=== PATIENT | male | born 1950 | race Caucasian/White ===

== ENCOUNTER → 2016-09-13 | Outpatient (CLI) | payer MEDICARE, OTHER ==
[2016-09-13 09:43] LABS: INR 1.1 (<1.1); Prothrombin Time 11.2 sec (9.0-12.0)
== END | disposition home or self-care (01) ==
LOC: LABWHC1 08:41
PROVIDERS: ATTEND Orthopaedic Surgery Hand Surgery
DX: Z51.81 Encounter for therapeutic drug level monitoring (principal); Z79.01 Long term (current) use of anticoagulants
CPT/HCPCS: 36415; 85610

== ENCOUNTER 2017-10-07 18:45 | Observation (INO) | payer MEDICARE, OTHER ==
[2017-10-07] MEDS ORDERED: SODIUM CHLORIDE 0.9% 1,000 ML IV STA (19:53)
[2017-10-07] MEDS ORDERED: SODIUM CHLORIDE 0.9% 500 ML IV STA (19:53)
[2017-10-07] MEDS ORDERED: ASPIRIN 81 MG PO STA (19:54)
[2017-10-07] MEDS ORDERED: NITROGLYCERIN OINT 1 INCH/GM PACKET TOPICAL STA (19:54)
--- NOTE | 2017-10-07 19:57 | ED ---
Arrhythmia/Palpitations HPI - General Chief Complaint: Arrhythmia/Palpitations Stated Complaint: Low blood pressure/lightheaded/chest pain Time Seen by Provider: 10/07/17 19:43 Source: patient Mode of arrival: wheelchair Limitations: no limitations - History of Present Illness Initial Comments: This 67-year-old white male presents with a complaint of some palpitations. He states that it feels like he is going into atrial fibrillation. He apparently has had atrial fibrillation for quite some time and knows when he goes in and out of it. He states that it is happened multiple times today. It usually will resolve if he rests. He also complains of an episode of having some chest pain earlier. This was a squeezing sensation in his left chest. He also had been taking his blood pressure today and noted that it was quite low. Is often in the 90s for the systolic. It did drop down to 78/57 at one point. His home blood pressure cuff. He states that his heart rate would jump up to approximately 114. He denies any shortness of breath, cough, fever. He denies any leg pain or swelling. There is no syncope or presyncope. No other complaints or modifying factors. - Related Data Home Medications Medication Instructions Recorded Confirmed Metoprolol Tartrate [Lopressor] 25 mg PO HS 04/02/16 10/07/17 Warfarin Sodium [Coumadin] 5 mg PO SUTUTHSA 04/02/16 10/07/17 Warfarin [Coumadin] 7.5 mg PO MOWEFR 04/02/16 10/07/17 Losartan Potassium [Cozaar] 25 mg PO DAILY 10/07/17 10/07/17 Metoprolol Tartrate [Lopressor] 50 mg PO DAILY 10/07/17 10/07/17 Previous Rx's Medication Instructions Recorded Clopidogrel [Plavix] 75 mg PO DAILY #30 tab 10/14/14 Nitroglycerin Sl Tabs [Nitrostat] 0.4 mg SUBLINGUAL Q5M PRN #30 tab 10/14/14 Allergies Allergy/AdvReac Type Severity Reaction Status Date / Time No Known Allergies Allergy Verified 10/07/17 20:20 Review of Systems ROS Statement: Those systems with pertinent positive or pertinent negative responses have been documented in the HPI. ROS Other: All systems not noted in ROS Statement are negative. 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, diverticulitis History of Any Multi-Drug Resistant Organisms: None Reported Past Surgical History: Appendectomy, Heart Catheterization, Orthopedic Surgery Additional Past Surgical History / Comment(s): skill saw accident lt hand affected 4 fingers, sx sophy elbows for tennis elbow Past Anesthesia/Blood Transfusion Reactions: No Reported Reaction Past Psychological History: No Psychological Hx Reported Smoking Status: Current every day smoker Past Alcohol Use History: None Reported Past Drug Use History: None Reported - Past Family History Father Family Medical History: Hypertension Mother Family Medical History: Coronary Artery Disease (CAD), Seizure Disorder General Exam - General Exam Comments Initial Comments: GENERAL: The patient is well nourished and well hydrated. VITAL SIGNS: Heart rate, blood pressure, respiratory rate reviewed as recorded in nurse's notes. EYES: Pupils are round and reactive. Extraocular movements are intact. No conjunctival / lid redness or swelling. ENT: No external evidence of injury, swelling, or ecchymosis. Airway is patent. Throat is clear. NECK: Nontender. No swelling or evidence of injury. No subcutaneous emphysema. Trachea is midline. No thyroid mass. HEART: Regular rate and rhythm. Good peripheral pulses. LUNGS/CHEST: Breath sounds clear and equal bilaterally. No rales, rhonchi, or wheezes. No ecchymosis, subcutaneous emphysema, or tenderness. ABDOMEN: Abdomen soft without tenderness. No palpable masses or organomegaly. No peritoneal signs. No abdominal wall swelling or ecchymosis. EXTREMITIES: No extremity tenderness. Normal muscle tone and function. No thoracolumbar tenderness. NEUROLOGIC: Sensation is grossly intact. Cranial nerve exam reveals face is symmetrical, tongue is midline, speech is clear. SKIN: No abrasions or ecchymosis is noted. No induration or masses noted. PSYCHIATRIC: Alert and oriented. Appropriate behavior and judgment. Mild anxiety noted. Limitations: no limitations Course Vital Signs 10/07/17 10/07/17 10/07/17 19:14 19:41 21:17 Temperature 98.7 F Pulse Rate 111 H 86 Pulse Rate [ 106 H [employer] ] Pulse Rate [ 98 Pulse Oximetery ] Pulse Rate [ 96 Radial] Respiratory 19 100 H 18 Rate Blood Pressure 125/78 119/58 Blood Pressure 140/65 [Right Arm Sitting] Blood Pressure 141/66 [Right Arm Standing] Blood Pressure 145/68 [Right Arm Supine] O2 Sat by Pulse 96 98 Oximetry 10/07/17 22:17 Temperature Pulse Rate 86 Pulse Rate [ [employer] ] Pulse Rate [ Pulse Oximetery ] Pulse Rate [ Radial] Respiratory 18 Rate Blood Pressure 110/87 Blood Pressure [Right Arm Sitting] Blood Pressure [Right Arm Standing] Blood Pressure [Right Arm Supine] O2 Sat by Pulse 99 Oximetry Medical Decision Making - Medical Decision Making The patient was seen and examined. All diagnostics were reviewed. An IV is started and he is hydrated. He has an EKG done which shows a normal sinus rhythm at a rate of 94. There is some mild T-wave inversions in V1 and V2 but no acute ST elevation. The [place] intervals 172, QRS duration is 82, and the QTC intervals 440. He does receive aspirin as well as some Nitropaste. He states that he is feeling better on recheck. He denies any further palpitations or chest pain. He also had a chest x-ray which does not show any acute processes. His cardiac profile labs is unremarkable. The case is discussed with Selina from internal medicine and she is agreeable with admission. Is felt as though he would require admission to rule out the possibility of acute coronary syndrome. - Lab Data Result diagrams: 10/07/17 19:38 10/07/17 19:38 Lab Results 10/07/17 10/07/17 10/07/17 Range/Units 19:38 19:38 19:38 WBC 9.6 (3.8-10.6) k/uL RBC 4.97 (4.30-5.90) m/uL Hgb 15.0 (13.0-17.5) gm/dL Hct 43.8 (39.0-53.0) % MCV 88.2 (80.0-100.0) fL MCH 30.3 (25.0-35.0) pg MCHC 34.3 (31.0-37.0) g/dL RDW 12.6 (11.5-15.5) % Plt Count 282 (150-450) k/uL Neutrophils % 67 % Lymphocytes % 23 % Monocytes % 6 % Eosinophils % 1 % Basophils % 1 % Neutrophils # 6.5 (1.3-7.7) k/uL Lymphocytes # 2.2 (1.0-4.8) k/uL Monocytes # 0.6 (0-1.0) k/uL Eosinophils # 0.1 (0-0.7) k/uL Basophils # 0.0 (0-0.2) k/uL PT (9.0-12.0) sec INR (<1.2) APTT (22.0-30.0) sec D-Dimer (<0.60) mg/L FEU Sodium 141 (137-145) mmol/L Potassium 4.4 (3.5-5.1) mmol/L Chloride 103 (98-107) mmol/L Carbon Dioxide 27 (22-30) mmol/L Anion Gap 11 mmol/L BUN 18 (9-20) mg/dL Creatinine 1.00 (0.66-1.25) mg/dL Est GFR (CKD-EPI)AfAm >90 (>60 ml/min/1.73 sqM) Est GFR (CKD-EPI)NonAf 78 (>60 ml/min/1.73 sqM) Glucose 114 H (74-99) mg/dL Calcium 10.1 (8.4-10.2) mg/dL Magnesium 1.8 (1.6-2.3) mg/dL Total Bilirubin 0.5 (0.2-1.3) mg/dL AST 32 (17-59) U/L ALT 42 (21-72) U/L Alkaline Phosphatase 69 (38-126) U/L Total Creatine Kinase 212 H (55-170) U/L CK-MB (CK-2) 1.5 (0.0-2.4) ng/mL CK-MB (CK-2) Rel Index 0.7 Troponin I <0.012 (0.000-0.034) ng/mL Total Protein 7.0 (6.3-8.2) g/dL Albumin 3.9 (3.5-5.0) g/dL 10/07/17 Range/Units 19:38 WBC (3.8-10.6) k/uL RBC (4.30-5.90) m/uL Hgb (13.0-17.5) gm/dL Hct (39.0-53.0) % MCV (80.0-100.0) fL MCH (25.0-35.0) pg MCHC (31.0-37.0) g/dL RDW (11.5-15.5) % Plt Count (150-450) k/uL Neutrophils % % Lymphocytes % % Monocytes % % Eosinophils % % Basophils % % Neutrophils # (1.3-7.7) k/uL Lymphocytes # (1.0-4.8) k/uL Monocytes # (0-1.0) k/uL Eosinophils # (0-0.7) k/uL Basophils # (0-0.2) k/uL PT 20.0 H (9.0-12.0) sec INR 2.2 H (<1.2) APTT 35.0 H (22.0-30.0) sec D-Dimer 0.26 (<0.60) mg/L FEU Sodium (137-145) mmol/L Potassium (3.5-5.1) mmol/L Chloride (98-107) mmol/L Carbon Dioxide (22-30) mmol/L Anion Gap mmol/L BUN (9-20) mg/dL Creatinine (0.66-1.25) mg/dL Est GFR (CKD-EPI)AfAm (>60 ml/min/1.73 sqM) Est GFR (CKD-EPI)NonAf (>60 ml/min/1.73 sqM) Glucose (74-99) mg/dL Calcium (8.4-10.2) mg/dL Magnesium (1.6-2.3) mg/dL Total Bilirubin (0.2-1.3) mg/dL AST (17-59) U/L ALT (21-72) U/L Alkaline Phosphatase (38-126) U/L Total Creatine Kinase (55-170) U/L CK-MB (CK-2) (0.0-2.4) ng/mL CK-MB (CK-2) Rel Index Troponin I (0.000-0.034) ng/mL Total Protein (6.3-8.2) g/dL Albumin (3.5-5.0) g/dL Disposition Clinical Impression: Palpitations, Chest pain, History of atrial fibrillation Disposition: ADMITTED IP TO THIS HOSP Condition: Fair Referrals: Kate Alvarez DO [Primary Care Provider] - 1-2 days Time of Disposition: 23:03 Decision Date: 10/07/17 Decision Time: 23:03
[2017-10-07 20:03] LABS: Basophils % (A) 1 %; Eosinophils # (A) 0.1 k/uL (0-0.7); Eosinophils % (A) 1 %; HCT 43.8 % (39.0-53.0); Lymphocytes # (A) 2.2 k/uL (1.0-4.8); Lymphocytes % (A) 23 %; MCH 30.3 pg (25.0-35.0); MCHC 34.3 g/dL (31.0-37.0); MCV 88.2 fL (80.0-100.0); Mean Platelet Volume 7.9; Monocytes # (A) 0.6 k/uL (0-1.0); Monocytes % (A) 6 %; Neutrophils # (A) 6.5 k/uL (1.3-7.7); Neutrophils % (A) 67 %; Platelet Count 282 k/uL (150-450); RBC 4.97 m/uL (4.30-5.90); RDW 12.6 % (11.5-15.5); WBC 9.6 k/uL (3.8-10.6)
[2017-10-07 20:14] LABS: ALT 42 U/L (21-72); AST 32 U/L (17-59); Albumin 3.9 g/dL (3.5-5.0); Alkaline Phosphatase 69 U/L (38-126); Anion Gap 11 mmol/L; Blood Urea Nitrogen 18 mg/dL (9-20); Calcium 10.1 mg/dL (8.4-10.2); Carbon Dioxide 27 mmol/L (22-30); Chloride 103 mmol/L (98-107); Glucose 114 mg/dL (74-99); Magnesium 1.8 mg/dL (1.6-2.3); Potassium 4.4 mmol/L (3.5-5.1); Sodium 141 mmol/L (137-145); Total Bilirubin 0.5 mg/dL (0.2-1.3)
[2017-10-07 20:16] LABS: D-Dimer 0.26 mg/L FEU (<0.60); INR 2.2 (<1.2)
[2017-10-07 20:21] LABS: Creatine Kinase 212 U/L (55-170)
[2017-10-07 20:34] LABS: Creatine Kinase MB 1.5 ng/mL (0.0-2.4); Troponin I <0.012 ng/mL (0.000-0.034)
--- NOTE | 2017-10-07 21:16 | XR ---
EXAMINATION: XR chest 2V DATE AND TIME: 10/07/2017 8:27 PM ORDERING PROVIDER: Adrian Russell DO CLINICAL INDICATION: dysrhythmia TECHNIQUE: PA and lateral COMPARISON: 04/02/2016 DESCRIPTION: The lungs are clear. The pleural spaces are negative. The cardiac silhouette is not enlarged. The mediastinal and pleural silhouettes are unremarkable. The skeletal structures are intact without focal findings. The soft tissues are unremarkable. IMPRESSION: NO ACUTE PROCESS.
[2017-10-07] MEDS ORDERED: NITROGLYCERIN SL TABS 0.4 MG TAB SUBLINGUAL PRN (23:04)
[2017-10-07] MEDS ORDERED: WARFARIN 5 MG TAB PO SCH (23:15)
[2017-10-08 00:07] VITALS: BMI 24.4
[2017-10-08] MEDS: NITROGLYCERIN OINT 1 INCH/GM PACKET TOPICAL SCH ×3 (00:14→12:12)
[2017-10-08] MEDS ORDERED: TEMAZEPAM 15 MG CAP PO PRN (00:39)
[2017-10-08] MEDS ORDERED: ALPRAZolam 0.25 MG TAB PO PRN (00:39)
[2017-10-08 02:06] LABS: Creatine Kinase 148 U/L (55-170)
[2017-10-08 02:19] LABS: Troponin I <0.012 ng/mL (0.000-0.034)
--- NOTE | 2017-10-08 03:42 | HP ---
HISTORY AND PHYSICAL DATE OF SERVICE: 10/07/2017 CHIEF COMPLAINTS: Lightheadedness and chest pain. HISTORY OF PRESENT ILLNESS: This 67-year-old gentleman with a past medical history of multiple medical problems including history atrial fibrillation, flutter, history of CVA, TIA, hypertension, hyperlipidemia, history of appendectomy, being followed by Dr. Kate Alvarez in the outpatient setting was admitted with some chest discomfort today and chest pain was on the left side which is squeezing type of sensation, which is not radiating anywhere. The patient also noted tachycardic at this time. Patient had blood pressure found to be low at 78/50, and the patient came to [facility] and admitted for further evaluation and treatment. The heart rate also jumped to 114 according to him. There is no history of fever, rigors. No history of headache, loss of consciousness, seizures at this time. The rhythm in the EKG was found to be normal sinus rhythm with a heart rate of 94 with left axis deviation. There is no history of fever, rigors, no history of headache, loss of consciousness, seizures. PAST MEDICAL HISTORY: History of atrial fibrillation, history of CVA, TIA, hypertension, hyperlipidemia, kidney stones, history of appendectomy, cardiac catheterization. MEDICATIONS: Prior to admission 1. Coumadin 7.5 Friday, Friday and Friday and 5 mg and Friday, Friday, , Friday. 2. Lopressor 25 mg q.h.s. 3. Cozaar 25 mg p.o. 4. Lopressor 50 mg p.o. daily. 5. Nitrostat 0.4 sublingual p.r.n. 6. Plavix 75 mg p.o. daily. ALLERGIES: None. FAMILY HISTORY: History of hypertension. SOCIAL HISTORY: History of smoking on a daily basis. REVIEW OF SYSTEMS: ENT: No diminished hearing or diminished vision. CARDIOVASCULAR: No angina or palpitations. Respirations: No cough or hemoptysis. GI no nausea. : No dysuria. NERVOUS SYSTEM: No numbness or weakness. Allergy/Immunology: No asthma or hayfever. Musculoskeletal as mentioned earlier. Hematology/Oncology: No history of anemia. Endocrine: No history of diabetes or hypothyroidism. Constitutional: As mentioned earlier. Dermatology: Negative. Rheumatology: Negative. Psychiatric: As mentioned earlier. PHYSICAL EXAM: The patient is alert and oriented times three. Pulse 96, blood pressure 120/62, respiration 18, temperature 97.9, pulse ox 98% on room air. HEENT is conjunctivae normal. Oral mucosa moist. Neck is no jugular venous distention. No carotid bruit. No lymph node enlargement. Cardiovascular: S1, S2 muffled. No S3, no S4. Respiratory: Breath sounds diminished in the bases. No rhonchi. No crackles. ABDOMEN: Soft, nontender. No mass palpable. Legs: No edema and no swelling. NERVOUS SYSTEM: Higher functions as mentioned earlier, moves all 4 limbs, no focal deficits. Lymphatics: No lymph nodes palpable in the neck, axillae or groin. SKIN: No ulcer, rash, bleeding. Joints: No active deforming arthropathy. LABS: CBC within normal limits. INR is 2.2. D-dimer is 0.26, glucose 114. ASSESSMENT: 1. Left-sided chest pain, rule out coronary artery disease. 2. Tachycardia, rule out cardiac arrhythmia. 3. Paroxysmal atrial fibrillation, flutter. 4. Coumadin monitoring. 5. Cerebrovascular accident/ Transient ischemic attack history. 6. Hyperlipidemia. 7. Hypertension. 8. History of nephrolithiasis. 9. History of brain aneurysm and stroke in 2013. 10.History of degenerative joint disease. 11.History of nicotine dependence. RECOMMENDATIONS AND DISCUSSION: In this 67-year-old gentleman who presented with multiple complex medical issues, we will monitor the patient closely. Continue the current management and symptomatic treatment. Otherwise at this time unstable angina protocol and cardiology consultation, telemetry. Otherwise, guarded prognosis because of multiple complex medical issues. Resume the home medications and further recommendations to follow. Copy of dictation being forwarded to Dr. Kate Alvarez who is the primary care physician. MMODL / IJN: [id number] /
[2017-10-08 08:14] VITALS: RESP 18
[2017-10-08 08:24] LABS: Cholesterol 163 mg/dL (<200); HDL Cholesterol 33 mg/dL (40-60); LDL Cholesterol,Calculated 105 mg/dL (0-99); Triglycerides 123 mg/dL (<150)
[2017-10-08 08:33] LABS: Creatine Kinase 127 U/L (55-170)
[2017-10-08 08:46] LABS: Troponin I <0.012 ng/mL (0.000-0.034)
[2017-10-08] MEDS ORDERED: CLOPIDOGREL 75 MG TAB PO SCH (09:00)
[2017-10-08] MEDS ORDERED: ASPIRIN 325 MG TAB PO SCH (09:00)
[2017-10-08] MEDS ORDERED: METOPROLOL TARTRATE 50 MG TAB PO SCH (09:00)
[2017-10-08] MEDS ORDERED: LOSARTAN 25 MG TAB PO SCH (09:00)
--- NOTE | 2017-10-08 10:37 | P.CRDCN ---
History of Present Illness Consult date: 10/08/17 History of present illness: This is a 67-year-old gentleman with history of of paroxysmal atrial fibrillation, systemic hypertension, history of previous TIAs/CVA and previous coronary artery disease which is noncritical, came to the hospital with complaints of recurrent episodes of palpitations. Apparently he felt that his heart was irregular and he could tell that is in atrial fibrillation. His blood pressure was Apparently low and he felt slightly dizzy. Because of that patient came to the emergency room. He also complains of vague chest pain which is chronic and seems to be nonsignificant. Since admission here patient has been in sinus rhythm. His blood pressure has been stable. His cardiac enzymes are negative. I discussed the case to and he suggests that patient be discharged home on a monitor. He patient has documented atrial fibrillation, he will try to do cryoablation. 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 residual difficulty swallowing, diverticulitis History of Any Multi-Drug Resistant Organisms: None Reported Past Surgical History: Appendectomy, Heart Catheterization, Orthopedic Surgery Additional Past Surgical History / Comment(s): skill saw accident lt hand affected 4 fingers, sx sophy elbows for tennis elbow Past Anesthesia/Blood Transfusion Reactions: No Reported Reaction Past Psychological History: No Psychological Hx Reported Smoking Status: Current every day smoker Past Alcohol Use History: None Reported Additional Past Alcohol Use History / Comment(s): started smoking at age 26- smoked now smokes 1/4 ppd Past Drug Use History: None Reported - Past Family History Father Family Medical History: Hypertension Mother Family Medical History: Coronary Artery Disease (CAD), Seizure Disorder Medications and Allergies Home Medications Medication Instructions Recorded Confirmed Type Clopidogrel [Plavix] 75 mg PO DAILY #30 tab 10/14/14 10/07/17 Rx Nitroglycerin Sl Tabs [Nitrostat] 0.4 mg SUBLINGUAL Q5M PRN #30 tab 10/14/1401/19 Rx Metoprolol Tartrate [Lopressor] 25 mg PO HS 04/02/16 10/07/17 History Warfarin Sodium [Coumadin] 5 mg PO SUTUTHSA 04/02/16 10/07/17 History Warfarin [Coumadin] 7.5 mg PO MOWEFR 04/02/16 10/07/17 History Losartan Potassium [Cozaar] 25 mg PO DAILY 10/07/17 10/07/17 History Metoprolol Tartrate [Lopressor] 50 mg PO DAILY 10/07/17 10/07/17 History Allergies Allergy/AdvReac Type Severity Reaction Status Date / Time Xodjmvt-Dwi-Gat Reductase AdvReac Intermediate Unknown Verified 10/08/17 04:47 Inhibitor Physical Exam Vitals: Vital Signs Temp Pulse Pulse Pulse Pulse Resp BP 10/08/17 08:00 98.2 F 84 18 10/08/17 04:00 98.0 F 80 16 10/08/17 03:48 80 16 10/08/17 00:00 84 16 10/07/17 23:57 97.9 F 72 15 10/07/17 23:10 96 18 110/62 10/07/17 22:17 86 18 110/87 10/07/17 21:17 86 18 119/58 10/07/17 19:41 106 H 98 96 100 H 10/07/17 19:14 98.7 F 111 H 19 125/78 BP BP BP BP Pulse Ox 10/08/17 08:00 123/62 94 L 10/08/17 04:00 117/64 96 10/08/17 03:48 10/08/17 00:00 10/07/17 23:57 140/76 96 10/07/17 23:10 99 10/07/17 22:17 99 10/07/17 21:17 98 10/07/17 19:41 140/65 141/66 145/68 10/07/17 19:14 96 Intake and Output 10/07/17 10/08/17 10/08/17 22:59 06:59 14:59 Other: Voiding Method Toilet Toilet # Voids 2 Weight 83.915 kg 88 kg GENERAL EXAM: Patient is alert and oriented and doesn't appear to be in any acute distress HEENT: Normocephalic. Normal reaction of pupils, equal size, normal range of extraocular motion. No erythema or exudates in the throat. NECK: No masses, no nuchal rigidity. CHEST: No chest wall deformity. LUNGS: Equal air entry with no crackles or wheeze. HEART: S1 and S2 normal with no audible mumurs or gallops. Regular rhythm, femorals equal on both sides.. ABDOMEN: No hepatosplenomegaly, normal bowel sounds, no guarding or rigidity. SKIN: No rashes CENTRAL NERVOUS SYSTEM: No focal deficits. EXTREMITIES: No cyanosis, clubbing or edema. Results 10/07/17 19:38 10/07/17 19:38 Cardiac Enzymes 10/07/17 10/07/17 10/08/17 Range/Units 19:38 19:38 01:12 AST 32 (17-59) U/L CK-MB (CK-2) 1.5 1.0 (0.0-2.4) ng/mL Troponin I <0.012 <0.012 (0.000-0.034) ng/mL 10/08/17 Range/Units 07:06 AST (17-59) U/L CK-MB (CK-2) 1.0 (0.0-2.4) ng/mL Troponin I <0.012 (0.000-0.034) ng/mL Coagulation 10/07/17 Range/Units 19:38 PT 20.0 H (9.0-12.0) sec APTT 35.0 H (22.0-30.0) sec Lipids 10/08/17 Range/Units 07:06 Triglycerides 123 (<150) mg/dL Cholesterol 163 (<200) mg/dL HDL Cholesterol 33 L (40-60) mg/dL CBC 10/07/17 Range/Units 19:38 WBC 9.6 (3.8-10.6) k/uL RBC 4.97 (4.30-5.90) m/uL Hgb 15.0 (13.0-17.5) gm/dL Hct 43.8 (39.0-53.0) % Plt Count 282 (150-450) k/uL Comprehensive Metabolic Panel 10/07/17 Range/Units 19:38 Sodium 141 (137-145) mmol/L Potassium 4.4 (3.5-5.1) mmol/L Chloride 103 (98-107) mmol/L Carbon Dioxide 27 (22-30) mmol/L BUN 18 (9-20) mg/dL Creatinine 1.00 (0.66-1.25) mg/dL Glucose 114 H (74-99) mg/dL Calcium 10.1 (8.4-10.2) mg/dL AST 32 (17-59) U/L ALT 42 (21-72) U/L Alkaline Phosphatase 69 (38-126) U/L Total Protein 7.0 (6.3-8.2) g/dL Albumin 3.9 (3.5-5.0) g/dL Current Medications Generic Name Dose Route Start Last Admin Trade Name Freq PRN Reason Stop Dose Admin Alprazolam 0.25 mg 10/08/17 00:39 Xanax PO TID PRN Anxiety Aspirin 325 mg 10/08/17 09:00 Aspirin PO DAILY [facility] Clopidogrel Bisulfate 75 mg 10/08/17 09:00 Plavix PO DAILY [facility] Losartan Potassium 25 mg 10/08/17 09:00 Cozaar PO DAILY [facility] Metoprolol Tartrate 50 mg 10/08/17 09:00 Lopressor PO DAILY [facility] Metoprolol Tartrate 25 mg 10/08/17 21:00 Lopressor PO HS [facility] Nitroglycerin 1 inch 10/08/17 00:00 10/08/17 03:47 Nitro-Bid Oint TOPICAL Not Given Q6HR [facility] Nitroglycerin 0.4 mg 10/07/17 23:04 Nitrostat SUBLINGUAL Q5M PRN Chest Pain Temazepam 15 mg 10/08/17 00:39 Restoril PO HS PRN Insomnia Warfarin Sodium 5 mg 10/07/17 23:15 10/08/17 00:11 Coumadin PO 5 mg [email or web address] [facility] Administration Warfarin Sodium 7.5 mg 10/08/17 18:00 Coumadin PO [email or web address] [facility] Intake and Output 10/07/17 10/08/17 10/08/17 22:59 06:59 14:59 Other: Voiding Method Toilet Toilet # Voids 2 Weight 83.915 kg 88 kg 10/07/17 19:38 10/07/17 19:38 EKG Interpretations (text) Sinus rhythm Assessment and Plan (1) CAD (coronary artery disease) Current Visit: Yes Status: Acute Code(s): I25.10 - ATHSCL HEART DISEASE OF [place] CORONARY ARTERY W/O ANG PCTRS SNOMED Code(s): 52431274 (2) History of atrial fibrillation Current Visit: Yes Status: Acute Code(s): Z86.79 - PERSONAL HISTORY OF OTHER DISEASES OF THE CIRCULATORY SYSTEM SNOMED Code(s): 503028306 (3) Palpitations Current Visit: Yes Status: Acute Code(s): R00.2 - PALPITATIONS SNOMED Code (s): 02129490 Plan: Patient is currently stable. No evidence of any atrial fibrillation since admission. His cardiac enzymes are negative. Patient will be discharged home with event monitor. Follow-up with Dr. Taylor in one week.
[2017-10-08 11:54] VITALS: BP 127/67; PULSE 68; TEMP 98.4
--- NOTE | 2017-10-08 17:18 | ECHOF ---
Referral Reason: MEASUREMENTS -------- HEIGHT: 182.9 cm WEIGHT: 88.0 kg BP: 117/64 IVSd: 1.3 cm (0.6 - 1.1) LVIDd: 3.7 cm (3.9 - 5.3) LVPWd: 1.4 cm (0.6 - 1.1) IVSs: 1.3 cm LVIDs: 2.4 cm LVPWs: 1.5 cm LAESV Index (A-L): 21.25 ml/m Ao Diam: 2.8 cm (2.0 - 3.7) AV Cusp: 1.8 cm (1.5 - 2.6) LA Diam: 2.9 cm (2.7 - 3.8) MV EXCURSION: 16.312 mm (> 18.000) MV EF SLOPE: 81 mm/s (70 - 150) EPSS: 0.2 cm MV E Raj: 0.61 m/s MV DecT: 192 ms MV A Raj: 0.59 m/s MV E/A Ratio: 1.04 RAP: 5.00 mmHg RVSP: 14.63 mmHg FINDINGS -------- Sinus rhythm. This was a technically adequate study. The left ventricular size is normal. There is mild concentric left ventricular hypertrophy. Overa ll left ventricular systolic function is normal with, an EF between 55 - 60 %. The right ventricle is normal in size. The left atrial size is normal. The right atrial size is normal. The aortic valve is trileaflet, and appears structurally normal. No aortic stenosis or regurgitation. Mild mitral regurgitation is present. Mild tricuspid regurgitation present. There is no evidence of pulmonary hypertension. The right v entricular systolic pressure, as measured by Doppler, is 14.63mmHg. Trace/mild (physiologic) pulmonic regurgitation. The aortic root size is normal. There is no pericardial effusion. CONCLUSIONS -------- 1. The left ventricular size is normal. 2. There is mild concentric left ventricular hypertrophy. 3. Overall left ventricular systolic function is normal with, an EF between 55 - 60 %. 4. The aortic valve is trileaflet, and appears structurally normal. No aortic stenosis or regurgitati on. 5. Mild mitral regurgitation is present. 6. Mild tricuspid regurgitation present. 7. There is no evidence of pulmonary hypertension. 8. The right ventricular systolic pressure, as measured by Doppler, is 14.63mmHg. 9. Trace/mild (physiologic) pulmonic regurgitation. 10. The aortic root size is normal. 11. There is no pericardial effusion. CELL STRIPPER FINAL: Lizy Minor RDCS
--- NOTE | 2017-10-08 17:46 | DS ---
DISCHARGE SUMMARY FINAL DIAGNOSES: 1. Chest pain, myocardial infarction ruled out, possibly musculoskeletal. 2. Tachycardia, rule out cardiac arrhythmia. 3. Paroxysmal atrial flutter fibrillation. 4. Coumadin monitor. 5. Cerebrovascular accident/transient ischemic attack history. 6. Hyperlipidemia. 7. Hypertension. 8. History of nephrolithiasis. 9. History of brain aneurysm and stroke in 2013. 10.History of degenerative joint disease. 11.History of nicotine dependence. DISPOSITION: The patient will be discharged in stable condition with guarded prognosis. Cardiology cleared the patient for discharge. HISTORY: This 67-year-old gentleman with a past medical history of multiple medical problems, was admitted with chest pain and palpitation. Myocardial infarction ruled out. Cardiology saw the patient and recommend outpatient event monitoring. On exam, vital stable. Cardiovascular normal. Nervous system, no focal deficits. DISCHARGE INSTRUCTIONS: 1. Cardiac diet. 2. Activity limited. FOLLOWUP: 1. Follow up with Dr. Kate Alvarez in 2 to 3 days. 2. Follow up with Cardiology as advised. MEDICATIONS: 1. Plavix 75 mg p.o. daily. 2. Cozaar 25 mg daily. 3. Lopressor 20 mg at bedtime and 50 mg p.o. daily. 4. Nitrostat 0.4 mg p.r.n. 5. Coumadin 7 5 mg Friday, Friday and Friday and 5 mg other days. Once again, the patient will be discharged in stable condition with guarded prognosis. MMODL / IJN: [id number] /
[2017-10-08] MEDS ORDERED: WARFARIN 7.5 MG TAB PO SCH (18:00)
[2017-10-08] MEDS ORDERED: METOPROLOL TARTRATE 25 MG TAB PO SCH (21:00)
== END 2017-10-08 15:55 | disposition home or self-care (01) ==
LOC: EC 18:45 → 3OBS 23:04
PROVIDERS: ADMIT Hospitalist; ATTEND Hospitalist
DX: R07.89 Other chest pain (principal); R00.0 Tachycardia, unspecified; I10 Essential (primary) hypertension; I48.0 Paroxysmal atrial fibrillation; I48.92 Unspecified atrial flutter; E78.5 Hyperlipidemia, unspecified; K57.90 Diverticulosis of intestine, part unspecified, without perforation or abscess without bleeding; I25.10 Atherosclerotic heart disease of native coronary artery without angina pectoris; M19.90 Unspecified osteoarthritis, unspecified site; Z79.01 Long term (current) use of anticoagulants; F17.200 Nicotine dependence, unspecified, uncomplicated; Z79.02 Long term (current) use of antithrombotics/antiplatelets; Z79.899 Other long term (current) drug therapy; Z88.8 Allergy status to other drugs, medicaments and biological substances; Z87.442 Personal history of urinary calculi; Z86.73 Personal history of transient ischemic attack (TIA), and cerebral infarction without residual deficits; Z82.49 Family history of ischemic heart disease and other diseases of the circulatory system; Z82.0 Family history of epilepsy and other diseases of the nervous system
CPT/HCPCS: 84484 ×3; 96365 ×2; 99285 ×2; 93005 ×2; 96366 ×2; 36415; 93306; 93270; 93271; 85379; 80061; 80053; 82550 ×2; 82553 ×2; 83735; 85025; 85610; 85730; 71046; G0378 ×2

== ENCOUNTER → 2017-12-01 | Outpatient (CLI) | payer MEDICARE, OTHER ==
[2017-12-01 10:03] LABS: HCT 46.1 % (39.0-53.0); HGB 15.7 gm/dL (13.0-17.5); MCH 30.5 pg (25.0-35.0); MCHC 34.1 g/dL (31.0-37.0); MCV 89.5 fL (80.0-100.0); Platelet Count 230 k/uL (150-450); RBC 5.15 m/uL (4.30-5.90); RDW 12.7 % (11.5-15.5)
[2017-12-01 10:13] LABS: Calcium 9.6 mg/dL (8.4-10.2); Potassium 4.8 mmol/L (3.5-5.1)
== END | disposition home or self-care (01) ==
LOC: LABWHC1 09:34
PROVIDERS: ATTEND Internal Medicine Clinical Cardiac Electrophysiology
DX: I48.0 Paroxysmal atrial fibrillation (principal); I25.10 Atherosclerotic heart disease of native coronary artery without angina pectoris; I10 Essential (primary) hypertension
CPT/HCPCS: 36415; 80048; 85027

== ENCOUNTER 2017-12-09 10:24 | Day surgery (SDC) | payer MEDICARE, OTHER ==
[~2017-12-09 10:24] MED LIST: LACTATED RINGERS 1,000 ML IV SCH; MIDAZOLAM 2 MG/2 ML VIAL IV PRN
[2017-12-09 11:42] LABS: INR 2.2 (<1.2); Prothrombin Time 19.5 sec (9.0-12.0)
[2017-12-09] MEDS ORDERED: HEPARIN SODIUM,PORCINE 10,000 UNIT/ML 1 ML VIAL ONE (12:03)
[2017-12-09] MEDS ORDERED: PROTAMINE SULFATE 10 MG/ML 5 ML VIAL IV ONE (12:03)
[2017-12-09] MEDS ORDERED: ATROPINE SULFATE 0.1 MG/ML 10ML SYRINGE ONE (12:03)
[2017-12-09] MEDS ORDERED: SUCCINYLCHOLINE CHLORIDE 100 MG/5 ML SYR IV ONE (12:03)
[2017-12-09] MEDS ORDERED: PROPOFOL 10 MG/ML 20 ML VIAL IV ONE (12:03)
[2017-12-09] MEDS ORDERED: fentaNYL (PF) 50 MCG/ML 2 ML AMP ONE (12:03)
[2017-12-09] MEDS ORDERED: IV FLUID CONTINUATION 1,000 ML IV ONE (12:03)
[2017-12-09] MEDS ORDERED: MORPHINE SULFATE 10 MG/ML SYRINGE ONE (12:03)
[2017-12-09] MEDS ORDERED: MIDAZOLAM 2 MG/2 ML VIAL ONE (12:03)
[2017-12-09] MEDS ORDERED: ePHEDrine SULFATE/0.9% NACL/PF 50 MG/5 ML SYRINGE IV ONE (12:03)
[2017-12-09] MEDS ORDERED: PHENYLEPHRINE-0.9% NACL SYG 1 MG/10 ML SYRINGE ONE (12:03)
[2017-12-09] MEDS ORDERED: LIDOCAINE 2% INJ 20 MG/ML SQ ONE ×2 (12:58→12:59)
[2017-12-09] MEDS ORDERED: HEPARIN SODIUM,PORCINE/D5W PMX 25,000 UNIT in DEXTROSE/WATER 1 500ML.BAG IV ONE (14:59)
[2017-12-09] MEDS ORDERED: LACTATED RINGERS 1,000 ML IV ONE (15:05)
[2017-12-09] MEDS ORDERED: IOPAMIDOL-370 100ML BTL INJ ONE (15:13)
[2017-12-09] MEDS ORDERED: ACETAMINOPHEN TAB 325 MG TAB PO PRN (15:15)
--- NOTE | 2017-12-09 15:26 | P.PCN ---
Preoperative Diagnosis: Diagnosis Symptomatic paroxysmal atrial fibrillation with RVR, recurrent Procedures performed (PVI - CRYO Ablation) Invasive hemodynamic monitoring while general anesthesia, right femoral arterial line for monitoring and sampling Comprehensive diagnostic EP study with attempted arrhythmia induction CS pacing and recording Drug infusion Catheter the mapping of the tachycardia (NOT 3D mapping) Intracardiac echocardiography Pulmonary vein isolation with transseptal and comprehensive EPS, 55213 Procedure details Patient was brought to the EP lab in a fasting state. Written informed consent was obtained prior to the procedure. Procedure performed under general anesthesia After initial muscle relaxant use, muscle relaxants were not given thereafter in order to assess phrenic nerve during procedure Patient prepped and draped as per protocol Full cryo-set up with standard preparation of the cryoablation tools done Femoral Venous access obtained on the right and left groins Sheaths placed Diagnostic catheters for the high right atrium, phrenic nerve stimulation and pacing, His bundle, RV and coronary sinus placed Intracardiac echo catheter placed Long sheath placed in the right atrium Left and right transseptal catheterization performed under intracardiac echo guidance Intravenous heparin with aCT above 300 Later, catheter positioning and balloon positioning under intracardiac echo Baseline measurements Sinus cycle length 851 ms, [place] interval 170 ms, QRS 85 ms and QT 400 ms AH 71 and HV 50 ms Comprehensive diagnostic EP study with drug infusion Atrial pacing performed from the high right atrium and the coronary sinus Sinus node recovery times at 600 504 100 ms were 1312, 1286 and 1299 ms. AV node Wenckebach block 390 ms Following drug infusion AV node Wenckebach block was also 390 ms VA Wenckebach block. Infusion 450 ms Transseptal catheterization performed RA pressure 13/3 mmHg LA pressure 5/1 mmHg Transseptal catheterization performed with standard sheath. The cryoablation sheath was then placed with an over the wire exchange without any acute complications. All 4 pulmonary veins were isolated in the following sequence: Left superior followed by left inferior followed by right superior followed by right inferior The cryo-ablation balloon was placed at the os of each vein 1.5 mL of IV dye was injected to confirm an occluded vein Goal during cryoablation was to achieve -30C in the first 30 seconds. If not the balloon was repositioned to obtain this result After completion of Cryoblation with durations from 180-240 seconds, entrance block was confirmed with the Attain circular catheter in a roving fashion around the antrum of the pulmonary veins Phrenic nerve pacing was performed from the SVC, right innominate vein area and diaphragm voltage was monitored as well as manually Parameter goals for each cryo freeze -30C by 30 seconds -40C by 60 seconds Mediated between minus 40-55 Thaw time greater than 10 seconds Balloon visualized by intracardiac echo to ensure that the proximal one third was within the left atrium/antrum Left superior pulmonary vein Single 3 minute cryoablation, Complete isolation in 38 seconds Left inferior pulmonary vein Single 3 minute cryoablation Complete isolation achieved in less than 40 seconds Right superior pulmonary vein, during phrenic nerve pacing 2 cryoablation's, 3 minutes each, complete isolation of the pulmonary vein Right inferior pulmonary vein, during phrenic nerve pacing 4 minute cryoablation lesion Complete isolation of the pulmonary vein At the end of the procedure the Achieve catheter was once again used to check for entrance block Phrenic nerve stimulation was performed to confirm diaphragmatic stimulation the end of the procedure Cine fluoroscopy was performed at the very end of the procedure to confirm movement of both diaphragms with inspiration and expiration At the end of the procedure the patient was extubated Heparin was reversed Venous sheaths were removed and hemostasis assured Result Successful pulmonary vein isolation using cryo-ablation Complete entrance block in all 4 veins confirmed Right-sided esophagus requiring deflection No evidence for phrenic nerve injury Anesthesia: GETA Disposition: same day
[2017-12-09] MEDS ORDERED: ACETAMINOPHEN IV (For NPO) 1,000 MG in EMPTY BAG 1 BAG IVPB ONE (15:45)
[2017-12-09] MEDS: SODIUM CHLORIDE 0.9% 1,000 ML IV SCH (17:31)
[2017-12-09] MEDS ORDERED: LOSARTAN 25 MG TAB PO SCH (18:00)
[2017-12-09] MEDS ORDERED: WARFARIN 5 MG TAB PO SCH (18:00)
[2017-12-09 20:38] VITALS: BMI 24.6
[2017-12-09] MEDS: HYDROcodone/APAP 5-325MG 1 EACH TAB PO PRN (20:49)
[2017-12-09] MEDS ORDERED: METOPROLOL TARTRATE 25 MG TAB PO SCH (21:00)
[2017-12-10] MEDS: HYDROcodone/APAP 5-325MG 1 EACH TAB PO PRN (06:13)
[2017-12-10 07:06] LABS: Anion Gap 9 mmol/L; Blood Urea Nitrogen 15 mg/dL (9-20); Carbon Dioxide 28 mmol/L (22-30); Chloride 102 mmol/L (98-107); Glucose 102 mg/dL (74-99); Potassium 4.2 mmol/L (3.5-5.1); Sodium 139 mmol/L (137-145)
[2017-12-10] MEDS: SODIUM CHLORIDE 0.9% 1,000 ML IV SCH (07:42)
[2017-12-10] MEDS ORDERED: RX INFO: IV CONTRAST WAS GIVEN 1 EACH MISC MISCELLANE PRN (07:42)
--- NOTE | 2017-12-10 07:57 | P.DS ---
Providers Attending physician: Charles Taylor Primary care physician: Kate Eubanks [facility] Course: Patient is lying comfortably in bed. He does complain of some sore throat and dysphagia. No chest discomfort or dizziness lightheadedness or palpitations On examination pulse rate is in the 70s sinus rhythm normal RI Blood pressure 102/58 mmHg, normal respirations Heart sounds are normal no rub gallop or murmur normal S1 normal S2 The sounds are clear no rhonchi no crackles Abdomen soft nontender Extremities warm no edema in the groins healed well Twelve-lead ECG shows sinus rhythm normal RI narrow QRS normal ST segments No hematoma in the groins sutures were removed from both groins Impression Paroxysmal atrial fibrillation with RVR, recurrent status post cryoablation of the pulmonary veins Esophageal deflection was required because he had a right-sided esophagus CT chest with contrast today to evaluate mediastinum and possible esophageal injury CAD/PVD Plan Discharge home for p.m. if computed tomography scan is normal and he is ablating in the hallways and groins of healed well without any hematoma or bleeding Follow-up in the office in 1-2 weeks No changes in medications, anticoagulation Coumadin lifelong Patient Condition at Discharge: Stable Plan - Discharge Summary Discharge Rx Participant: Yes New Discharge Prescriptions: Continue Clopidogrel [Plavix] 75 mg PO DAILY #30 tab Nitroglycerin Sl Tabs [Nitrostat] 0.4 mg SUBLINGUAL Q5M PRN #30 tab PRN Reason: Chest Pain Warfarin [Coumadin] 7.5 mg PO MOWEFR Warfarin Sodium [Coumadin] 5 mg PO SUTUTH Metoprolol Tartrate [Lopressor] 25 mg PO HS Metoprolol Tartrate [Lopressor] 50 mg PO DAILY Losartan Potassium [Cozaar] 25 mg PO 1800 Discharge Medication List Clopidogrel [Plavix] 75 mg PO DAILY #30 tab 10/14/14 [Rx] Nitroglycerin Sl Tabs [Nitrostat] 0.4 mg SUBLINGUAL Q5M PRN #30 tab 10/14/14 [Rx ] Metoprolol Tartrate [Lopressor] 25 mg PO HS 04/02/16 [History] Warfarin Sodium [Coumadin] 5 mg PO SUTUTHSA 04/02/16 [History] Warfarin [Coumadin] 7.5 mg PO MOWEFR 04/02/16 [History] Losartan Potassium [Cozaar] 25 mg PO 1800 10/07/17 [History] Metoprolol Tartrate [Lopressor] 50 mg PO DAILY 10/07/17 [History] Follow up Appointment(s)/Referral(s): Charles Taylor MD [STAFF PHYSICIAN] - 2 Weeks (Follow-up with Pia /Dr. Mane in 1-2 weeks) Activity/Diet/Wound Care/Special Instructions: Post EP study - Ablation instructions 1. Keep access sites dry for 2 days. 2. No heavy lifting or straining for 2 days. 3. Avoid bending the hips repeatedly for 2 days. 4. You may go up and down stairs slowly Call if the following is noted 1. Bleeding, increasing swelling or pain at the access sites. 2. Increasing chest discomfort, especially upon taking a deep breath. 3. Increasing shortness of breath, at rest or with exertion. 4. Undue cough / phlegm 5. Difficulty or pain while swallowing. 6. Pain or change in color in the extremities. 7. Fever, chills, rigors. 8. Increasing headache or neurologic symptoms. 9. Dizziness, fainting, palpitations Discharge home after computed tomography scan between 4 PM and 5 PM Patient should ambulate in the hallways continue anticoagulation with Coumadin no changes in medications Discharge Disposition: HOME SELF-CARE
[2017-12-10 08:02] VITALS: RESP 18
[2017-12-10] MEDS ORDERED: CLOPIDOGREL 75 MG TAB PO SCH (09:00)
[2017-12-10] MEDS ORDERED: METOPROLOL TARTRATE 50 MG TAB PO SCH (09:00)
--- NOTE | 2017-12-10 11:24 | CT ---
EXAMINATION TYPE: CT chest w con DATE OF EXAM: 12/10/2017 COMPARISON: NONE HISTORY: Post cardiac ablation looking for air in mediastinum, persistent pain. CT DLP: 633 mGycm Automated exposure control for dose reduction was used. CONTRAST: CT scan of the chest is performed with IV Contrast, patient injected with 100 mL of Isovue 300. FINDINGS: LUNGS: Moderate underlying emphysematous change is felt present. There is bibasilar linear scarring a nd/or atelectasis. There is dependent atelectasis in both bases. No pleural effusion or pneumothorax is present bilaterally. No suspicious nodule or mass is identified. MEDIASTINUM: There are no greater than 1 cm hilar or mediastinal lymph nodes. No cardiomegaly or pe ricardial effusion is seen. No pneumomediastinum is seen. No suspicious mediastinal fluid is present . There is moderate mixed plaque in the thoracic aorta. OTHER: There is 9 mm splenule in anterior splenic hilum axial image 65. There is mild multilevel spu rring in the thoracic spine. IMPRESSION: No pneumomediastinum or other suspicious evidence of complication related to recent card iac ablation.
[2017-12-10 15:33] VITALS: BP 113/59; PULSE 79; TEMP 98.4
[2017-12-10] MEDS ORDERED: WARFARIN 7.5 MG TAB PO SCH (18:00)
== END 2017-12-10 17:10 | disposition home or self-care (01) ==
LOC: CATHEP 10:24 → 3OBS 15:06 → CATHEP 12-10 17:10
PROVIDERS: ATTEND Internal Medicine Clinical Cardiac Electrophysiology
DX: I48.0 Paroxysmal atrial fibrillation (principal); I10 Essential (primary) hypertension; E78.5 Hyperlipidemia, unspecified; Z82.49 Family history of ischemic heart disease and other diseases of the circulatory system; I65.29 Occlusion and stenosis of unspecified carotid artery; I70.0 Atherosclerosis of aorta; R13.10 Dysphagia, unspecified; I25.2 Old myocardial infarction; I25.10 Atherosclerotic heart disease of native coronary artery without angina pectoris; Z86.73 Personal history of transient ischemic attack (TIA), and cerebral infarction without residual deficits; Z87.442 Personal history of urinary calculi; F17.210 Nicotine dependence, cigarettes, uncomplicated; Z95.1 Presence of aortocoronary bypass graft; Z79.01 Long term (current) use of anticoagulants; Z79.02 Long term (current) use of antithrombotics/antiplatelets; Z79.899 Other long term (current) drug therapy
CPT/HCPCS: 85347; 93662; 93609; 93656; 80048; 85610; 71260; C1769 ×4; C1894 ×3; C1730 ×2; C1759; C1893; C1733; C1766; J2001; J1644; Q9967 ×2

== ENCOUNTER → 2018-04-29 | Outpatient (CLI) | payer MEDICARE, OTHER ==
[2018-04-29 17:32] LABS: Blood Urea Nitrogen 19 mg/dL (9-20)
--- NOTE | 2018-04-30 11:11 | CT ---
EXAMINATION TYPE: CT abdomen pelvis w con DATE OF EXAM: 04/29/2018 COMPARISON: 06/24/2014 INDICATION: Unilateral inguinal hernia with obstruction. DLP: 1176 mGycm, Automated exposure control for dose reduction was used. CONTRAST: 100 mL of Isovue M300. Study performed with Oral Contrast TECHNIQUE: Axial images were obtained from above the diaphragm to the pubic rami in the axial plane a t 5 mm thick sections. Reconstructed images are reviewed on the computer in the coronal plane. FINDINGS: Limited CT sections are obtained the lung bases. Minimal streak atelectasis may be within the initia l image on the right lower lobe. CT ABDOMEN: Small hiatal hernia is present. Liver: Normal Spleen: Normal Pancreas: Normal. Common bile duct within the head of the pancreas is somewhat prominent at 1.1 cm. N ormal less than 0.7 cm. Adrenal glands: The adrenal glands are normal. Gallbladder: Normal Kidneys: No masses are evident. No hydronephrosis is present. No cysts are present. Delayed images were obtained through the kidneys, which remain unremarkable. Aorta: Vascular calcification is within the aorta. There is mild fusiform prominence of the distal a bdominal aorta measuring 2.5 cm in AP dimension. This terminates at the bifurcation. Inferior vena cava: Normal. CT PELVIS: Loops of bowel within the abdomen and pelvis are normal. There are loops of bowel which are incom pletely distended or lack oral contrast limiting their evaluation. Diverticulosis without acute diver ticulitis is within the sigmoid colon. Appendix: Not identified. No suspicious tubular structures or inflammatory changes are evident. Urinary bladder: Normal. Genitourinary structures: Prostate is prominent. Osseous structures: No suspicious lytic or sclerotic lesions. Degenerative disc changes and endplate changes are within the lumbar spine. IMPRESSIONS: 1. Prominent common bile duct. Consider ERCP for additional evaluation. Intrahepatic biliary dilatat ion or obstructing stones are not identified. 2. Diverticulosis without acute diverticulitis. 3. No suspicious inguinal hernia.
== END | disposition home or self-care (01) ==
LOC: RADCTMAIN 16:33
PROVIDERS: ATTEND Surgery
DX: K57.90 Diverticulosis of intestine, part unspecified, without perforation or abscess without bleeding (principal)
CPT/HCPCS: 82565; 84520; 74177; 36415; Q9967

== ENCOUNTER 2018-09-07 09:53 | Emergency (ER) | payer MEDICARE, OTHER ==
[2018-09-07 10:03] VITALS: TEMP 97.7
--- NOTE | 2018-09-07 10:36 | ED ---
General Adult HPI - General Chief complaint: Recheck/Abnormal Lab/Rx Stated complaint: low BP Time Seen by Provider: 09/07/18 09:54 Source: patient, EMS Mode of arrival: EMS Limitations: no limitations - History of Present Illness Initial comments: Dictation was produced using [employer] dictation software. please excuse any grammatical, word or spelling errors. Chief Complaint: 68-year-old male presents with episode of hypotension History of Present Illness: 68-year-old male. He has past medical history of atrial fibrillation, brain aneurysm, stroke and dyslipidemia. He was at the [facility] thought to get surgery for glaucoma. He received couple beta cary eyedrops. Shortly after he began feeling eye pain, nausea and lightheadedness. He checked his blood pressure is found to be low. EMS was called patient was transferred to the emergency department. During EMS transfer patient's blood pressure began to improve. Patient upon arrival to emergency department feels asymptomatic except for some mild eye pain. The ROS documented in this emergency department record has been reviewed and confirmed by me. Those systems with pertinent positive or negative responses have been documented in the HPI. All other systems are other negative and/or noncontributory. PHYSICAL EXAM: General Impression: Alert and oriented x3, not in acute distress HEENT: Normocephalic atraumatic, extra-ocular movements intact, pupils equal and reactive to light bilaterally, mucous membranes moist, clinical pupils. 4 mm on the left, 3 mm in the right Cardiovascular: Heart regular rate and rhythm, S1&S2 audible, no murmurs, rubs or gallops Chest: Lungs clear to auscultation bilaterally, no rhonchi, no wheeze, no rales Abdomen: Bowel sounds present, abdomen soft, non-tender, non-distended, no organomegaly Musculoskeletal: Pulses present and equal in all extremities, no peripheral edema Motor: Power 5/5 bilaterally, no focal deficits noted Neurological: CN II-XII grossly intact, no focal motor or sensory deficits noted Skin: Intact with no visualized rashes Psych: Normal affect and mood ED course: 38-year-old male presents after episode of hypotension after beta cary eyedrops. Signs upon arrival are within acceptable limits. Patient is asymptomatic except for some mild eye pain. Patient has unequal pupils secondary from eyedrops. Patient was observed in emergency department for couple hours. Patient has had normal blood pressures process. Asymptomatic at this time. His examination is unremarkable. Patient ambulatory tolerating by mouth. Patient clear for discharge. Advised to follow-up with fx artist EKG interpretation: Ventricular rate 62, normal sinus rhythm, DC interval 170, QS 92, QTc 432. No DC prolongation, no QTC prolongation, no ST or T-wave changes noted. . Overall, this EKG is unremarkable - Related Data Home Medications Medication Instructions Recorded Confirmed Metoprolol Tartrate [Lopressor] 25 mg PO HS 04/02/16 09/07/18 Warfarin Sodium [Coumadin] 5 mg PO SUTUTHSA 04/02/16 09/07/18 Warfarin [Coumadin] 7.5 mg PO MOWEFR 04/02/16 09/07/18 Losartan Potassium [Cozaar] 25 mg PO DAILY@1800 10/07/17 09/07/18 Metoprolol Tartrate [Lopressor] 50 mg PO DAILY 10/07/17 09/07/18 Previous Rx's Medication Instructions Recorded Clopidogrel [Plavix] 75 mg PO DAILY #30 tab 10/14/14 Nitroglycerin Sl Tabs [Nitrostat] 0.4 mg SUBLINGUAL Q5M PRN #30 tab 10/14/14 Allergies Allergy/AdvReac Type Severity Reaction Status Date / Time [id number] Reductase AdvReac Intermediate MUSCLE PAIN Verified 09/07/18 10: 10 Inhibitor Review of Systems ROS Statement: Those systems with pertinent positive or pertinent negative responses have been documented in the HPI. ROS Other: All systems not noted in ROS Statement are negative. 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 residual difficulty swallowing, diverticulitis History of Any Multi-Drug Resistant Organisms: None Reported Past Surgical History: Appendectomy, Heart Catheterization, Orthopedic Surgery Additional Past Surgical History / Comment(s): skill saw accident lt hand affected 4 fingers, sx sophy elbows for tennis elbow Past Anesthesia/Blood Transfusion Reactions: No Reported Reaction Past Psychological History: No Psychological Hx Reported Smoking Status: Current every day smoker Past Alcohol Use History: None Reported, Rare Past Drug Use History: None Reported - Past Family History Father Family Medical History: Hypertension Mother Family Medical History: Coronary Artery Disease (CAD) General Exam Limitations: no limitations Course Vital Signs 09/07/18 09/07/18 09/07/18 09:55 10:30 11:00 Temperature 97.7 F Pulse Rate 62 63 68 Respiratory 18 18 18 Rate Blood Pressure 143/74 143/74 129/81 O2 Sat by Pulse 97 97 96 Oximetry 09/07/18 11:23 Temperature Pulse Rate 77 Respiratory 20 Rate Blood Pressure 116/78 O2 Sat by Pulse 99 Oximetry Disposition Clinical Impression: Syncope Disposition: HOME SELF-CARE Condition: Good Instructions (If sedation given, give patient instructions): Syncope in Older Adults (ED) Is patient prescribed a controlled substance at d/c from ED?: No Referrals: Kate Alvarez DO [Primary Care Provider] - 1-2 days Time of Disposition: 12:15
[2018-09-07 12:33] VITALS: BP 112/74; PULSE 78; RESP 18
== END 2018-09-07 12:33 | disposition home or self-care (01) ==
LOC: EC 09:53
DX: R55 Syncope and collapse (principal); R11.0 Nausea; R42 Dizziness and giddiness; H57.11 Ocular pain, right eye; R03.1 Nonspecific low blood-pressure reading; I48.91 Unspecified atrial fibrillation; I48.92 Unspecified atrial flutter; I10 Essential (primary) hypertension; F17.200 Nicotine dependence, unspecified, uncomplicated; Z86.69 Personal history of other diseases of the nervous system and sense organs; Z95.818 Presence of other cardiac implants and grafts; Z86.73 Personal history of transient ischemic attack (TIA), and cerebral infarction without residual deficits; Z82.49 Family history of ischemic heart disease and other diseases of the circulatory system; Z79.01 Long term (current) use of anticoagulants; Z79.899 Other long term (current) drug therapy; Z88.8 Allergy status to other drugs, medicaments and biological substances
CPT/HCPCS: 93005; 99285

== ENCOUNTER → 2018-12-24 | Outpatient (CLI) | payer MEDICARE, OTHER ==
[2018-12-24 07:28] LABS: Basophils # (A) 0.1 k/uL (0-0.2); Basophils % (A) 1 %; Eosinophils # (A) 0.2 k/uL (0-0.7); Eosinophils % (A) 4 %; HCT 48.7 % (39.0-53.0); HGB 15.7 gm/dL (13.0-17.5); Lymphocytes # (A) 1.7 k/uL (1.0-4.8); Lymphocytes % (A) 30 %; MCHC 32.3 g/dL (31.0-37.0); MCV 92.9 fL (80.0-100.0); Mean Platelet Volume 7.5; Monocytes # (A) 0.4 k/uL (0-1.0); Monocytes % (A) 7 %; Neutrophils # (A) 3.3 k/uL (1.3-7.7); Neutrophils % (A) 57 %; Platelet Count 243 k/uL (150-450); RBC 5.24 m/uL (4.30-5.90); RDW 13.9 % (11.5-15.5); WBC 5.8 k/uL (3.8-10.6)
[2018-12-24 11:37] LABS: Albumin 4.2 g/dL (3.80-4.90); Albumin/Globulin Ratio 1.83 (1.60-3.17); Anion Gap 4.7 mmol/L (4.00-12.00); Calcium 9.5 mg/dL (8.7-10.3); Carbon Dioxide 27.3 mmol/L (21.6-31.8); Globulin 2.3 g/dL (1.6-3.3); LDL Cholesterol,Calculated 124.8 mg/dL (0.0-131.0); Potassium 4.6 mmol/L (3.5-5.5); Total Bilirubin 0.3 mg/dL (0.2-1.2); Total Protein 6.5 g/dL (6.2-8.2); VLDL Calculation 31.2 mg/dL (5.00-40.00)
== END ==
LOC: LABWHC1 06:50
PROVIDERS: ATTEND Family Medicine
DX: I10 Essential (primary) hypertension (principal); E78.5 Hyperlipidemia, unspecified; Z12.5 Encounter for screening for malignant neoplasm of prostate
CPT/HCPCS: 36415; 80053; 80061; 84153; 85025

== ENCOUNTER → 2019-01-12 | Outpatient (CLI) | payer MEDICARE, OTHER ==
--- NOTE | 2019-01-12 12:16 | US ---
EXAMINATION TYPE: US venous doppler duplex LE LT DATE OF EXAM: 01/12/2019 12:00 PM COMPARISON: NONE CLINICAL HISTORY: I80.9 Phlebitis and thrombophlebitis of unspecifie. SIDE PERFORMED: TECHNIQUE: The lower extremity deep venous system is examined utilizing real time linear array sonog david with graded compression, doppler sonography and color-flow sonography. VESSELS IMAGED: External Iliac Vein (EIV) Common Femoral Vein Deep Femoral Vein Greater Saphenous Vein * Femoral Vein Popliteal Vein Small Saphenous Vein * Proximal Calf Veins (* superficial vessels) Grayscale, color doppler, spectral doppler imaging performed of the deep veins of the left lower extr emity. There is normal flow, compressibility, vascular waveforms. GSV and PTV's also scanned per order. Left Leg: Negative for DVT Results given to Jessica charles immediately following exam. IMPRESSION: No sonographic evidence of deep venous thrombosis within the left lower extremity.
== END | disposition home or self-care (01) ==
LOC: RADUSWWP 11:26
PROVIDERS: ATTEND Orthopaedic Surgery
DX: I80.9 Phlebitis and thrombophlebitis of unspecified site (principal); M25.562 Pain in left knee; Z86.2 Personal history of diseases of the blood and blood-forming organs and certain disorders involving the immune mechanism

== ENCOUNTER 2019-07-26 12:21 | Emergency (ER) | payer OTHER, MEDICARE ==
[2019-07-26 13:26] VITALS: TEMP 98
--- NOTE | 2019-07-26 14:32 | XR ---
EXAMINATION TYPE: XR hand complete LT DATE OF EXAM: 07/26/2019 CLINICAL HISTORY: pain TECHNIQUE: Frontal, lateral and oblique images of the left hand are obtained. COMPARISON: None. FINDINGS: There is no acute fracture/dislocation evident. The joint spaces appear within normal limi ts. Amputation distal phalanx left second digit. The overlying soft tissue appears unremarkable. IMPRESSION: There is no acute fracture or dislocation. ICD 10 NO FRACTURE, INITIAL EVALUATION
[2019-07-26 14:51] LABS: INR 2.4 (<1.2)
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
[2019-07-26 15:37] VITALS: BP 134/70; PULSE 72; RESP 16
== END 2019-07-26 15:37 | disposition home or self-care (01) ==
LOC: EC 12:21
DX: S60.222A Contusion of left hand, initial encounter (principal); S16.1XXA Strain of muscle, fascia and tendon at neck level, initial encounter; R51 Headache; I48.91 Unspecified atrial fibrillation; I48.92 Unspecified atrial flutter; I10 Essential (primary) hypertension; F17.200 Nicotine dependence, unspecified, uncomplicated; Z79.01 Long term (current) use of anticoagulants; Z79.899 Other long term (current) drug therapy; Z88.8 Allergy status to other drugs, medicaments and biological substances; Z86.73 Personal history of transient ischemic attack (TIA), and cerebral infarction without residual deficits; V43.52XA Car driver injured in collision with other type car in traffic accident, initial encounter; Y92.410 Unspecified street and highway as the place of occurrence of the external cause
CPT/HCPCS: 36415; 85610; 99284

== ENCOUNTER 2020-11-15 17:12 | Emergency (ER) | payer MEDICARE, OTHER ==
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
[2020-11-15 17:22] VITALS: TEMP 97.7
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
[2020-11-15 19:04] VITALS: RESP 18
[2020-11-15 19:06] VITALS: BP 123/96; PULSE 85
== END 2020-11-15 19:06 | disposition home or self-care (01) ==
LOC: EC 17:12
DX: I73.9 Peripheral vascular disease, unspecified (principal); K82.1 Hydrops of gallbladder; E78.5 Hyperlipidemia, unspecified; F17.200 Nicotine dependence, unspecified, uncomplicated; I10 Essential (primary) hypertension; I48.91 Unspecified atrial fibrillation; Z79.01 Long term (current) use of anticoagulants; Z86.73 Personal history of transient ischemic attack (TIA), and cerebral infarction without residual deficits
CPT/HCPCS: 99283

== ENCOUNTER 2021-01-26 09:30 | Day surgery (SDC) | payer MEDICARE, OTHER ==
[2021-01-23 13:33] VITALS: BMI 25.0
[~2021-01-26 09:30] MED LIST changes: +LIDOCAINE 1% (10MG/ML) FOR IV START INTRADERMA PRN; -MIDAZOLAM 2 MG/2 ML VIAL IV PRN
[2021-01-26 10:24] VITALS: RESP 16; TEMP 98.4
[2021-01-26] MEDS ORDERED: PROPOFOL 10 MG/ML 20 ML VIAL IV ONE (11:00)
[2021-01-26] MEDS ORDERED: LIDOCAINE 1% INJ 10MG/ML (20 ML MDV) ONE (11:00)
--- NOTE | 2021-01-26 11:34 | P.PCN ---
Date of Procedure: 01/26/21 Procedure(s) Performed: BRIEF HISTORY: Patient is a 70-year-old pleasant male scheduled for an elective colonoscopy as a part of evaluation of recent episode of acute sigmoid diverticulitis treated with antibiotics. PROCEDURE PERFORMED: Colonoscopy with biopsy. PREOPERATIVE DIAGNOSIS: Recent episode of acute sigmoid diverticulitis. IV sedation per Anesthesia. PROCEDURE: After informed consent was obtained, the patient, was brought into the endoscopy unit. IV sedation was administered by Anesthesia under continuous monitoring. Digital rectal examination was normal. Initially the Olympus CF-160 flexible video colonoscope was then inserted in the rectum, gradually advanced into the cecum without any difficulty. Careful examination was performed as the scope was gradually being withdrawn. Ileocecal valve and the appendiceal orifice were visualized and appeared normal. Prep was excellent. Mucosa of the cecum, ascending colon, transverse colon, appeared normal. In the descending colon there was a 5 mm polyp that was removed by cold biopsy. There are scattered sigmoid diverticula seen. Rest of the descending colon, sigmoid colon, and rectum appeared normal. In the rectum there was a 3 mm polyp that was removed by cold biopsy. Retroflexion was performed in the rectum and no lesions were seen. The patient tolerated the procedure well. IMPRESSION: 5 mm descending colon polyp status post cold biopsy 3 mm rectal polyp status post biopsy Scattered sigmoid diverticulosis RECOMMENDATIONS: Findings of this examination were discussed with the patient as well as his family. He was advised to follow with the biopsy. The biopsy shows an adenoma he can have a repeat colonoscopy in 5 years..
[2021-01-26 11:57] VITALS: BP 120/85; PULSE 76
== END 2021-01-26 12:14 | disposition home or self-care (01) ==
LOC: ORWHC2ENDO 09:30
PROVIDERS: ATTEND Internal Medicine Gastroenterology
DX: D12.4 Benign neoplasm of descending colon (principal); K62.1 Rectal polyp; K57.30 Diverticulosis of large intestine without perforation or abscess without bleeding; I10 Essential (primary) hypertension; E78.5 Hyperlipidemia, unspecified; I48.91 Unspecified atrial fibrillation; F17.200 Nicotine dependence, unspecified, uncomplicated; Z87.442 Personal history of urinary calculi; Z86.73 Personal history of transient ischemic attack (TIA), and cerebral infarction without residual deficits; Z98.890 Other specified postprocedural states; Z79.01 Long term (current) use of anticoagulants; Z79.02 Long term (current) use of antithrombotics/antiplatelets; Z79.82 Long term (current) use of aspirin; Z79.899 Other long term (current) drug therapy; Z88.8 Allergy status to other drugs, medicaments and biological substances
CPT/HCPCS: 88305; 45380; J2001; J2704

== ENCOUNTER → 2021-10-12 | Outpatient (CLI) | payer MEDICARE, OTHER ==
[2021-10-12 23:30] LABS: African American GFR (CKD) 92.2 (60.0-200.0); Albumin 3.9 g/dL (3.8-4.9); Albumin/Globulin Ratio 1.49 (1.60-3.17); Anion Gap 9.1 mmol/L (10.00-18.00); BUN/Creat Ratio 11.64 Ratio (12.00-20.00); Blood Urea Nitrogen 11.2 mg/dL (9.0-27.0); Calcium 9.5 mg/dL (8.7-10.3); Carbon Dioxide 25.2 mmol/L (20.0-27.5); Globulin 2.6 g/dL (1.6-3.3); Non-African American GFR(CKD) 79.6 (60.0-200.0); Potassium 4.4 mmol/L (3.5-5.5); Total Bilirubin 0.8 mg/dL (0.30-1.20); Total Protein 6.5 g/dL (6.2-8.2)
[2021-10-13 01:27] LABS: Basophils # (A) 0.07 X 10*3/uL (0.00-0.10); Basophils % (A) 1.1 %; Eosinophils # (A) 0.31 X 10*3/uL (0.04-0.35); Eosinophils % (A) 4.7 %; HCT 41.2 % (39.6-50.0); Immature Grans, Automated 0.3 %; Lymphocytes # (A) 2.33 X 10*3/uL (0.90-5.00); Lymphocytes % (A) 35.1 %; MCH 32.1 pg (27.0-32.0); MCV 94.5 fL (80.0-97.0); Mean Platelet Volume 10.2 fL (9.5-12.2); Monocytes # (A) 0.63 X 10*3/uL (0.20-1.00); Monocytes % (A) 9.5 %; NRBC Per 100 WBC 0 /100 WBCS (0.0-0.0); Neutrophils # (A) 3.27 X 10*3/uL (1.80-7.70); Neutrophils % (A) 49.3 %; Platelet Count 235 X 10*3/uL (140-440); RBC 4.36 X 10*6/uL (4.40-5.60); RDW 13.4 % (11.5-14.5); WBC 6.63 X 10*3/uL (4.50-10.00)
== END | disposition home or self-care (01) ==
LOC: LABWHC1 15:26
PROVIDERS: ATTEND Internal Medicine Gastroenterology
DX: R10.11 Right upper quadrant pain (principal)
CPT/HCPCS: 36415; 80053; 85025

== ENCOUNTER 2021-10-25 13:30 | Emergency (ER) | payer MEDICARE, OTHER ==
[2021-10-25 14:06] VITALS: BP 148/72; PULSE 91; RESP 18; TEMP 97
[2021-10-25 15:28] LABS: Appearance,Urine Clear (Clear); Bilirubin,Urine Negative (Negative); Blood,Urine Negative (Negative); Color,Urine Light Yellow; Glucose,Urine (UA) Negative (Negative); Ketones,Urine Negative (Negative); Leukocyte Esterase,Urine Negative (Negative); Nitrite,Urine Negative (Negative); PH, Urine 7.5 (5.0-8.0); Protein,Urine Negative (Negative); Specific Gravity,Urine 1.016 (1.001-1.035); Urobilinogen,Urine <2.0 mg/dL (<2.0)
== END 2021-10-25 15:34 | disposition left against medical advice (07) ==
LOC: EC 13:30
DX: Z53.21 Procedure and treatment not carried out due to patient leaving prior to being seen by health care provider (principal); R10.9 Unspecified abdominal pain
CPT/HCPCS: 81003; 99499

== ENCOUNTER 2021-10-26 10:43 | Day surgery (SDC) | payer MEDICARE, OTHER ==
[2021-10-24 15:54] VITALS: BMI 23.1
[2021-10-26 11:56] VITALS: TEMP 97.1
[2021-10-26] MEDS ORDERED: LIDOCAINE 1% INJ 10MG/ML (20 ML MDV) ONE (12:47)
[2021-10-26] MEDS ORDERED: PROPOFOL 10 MG/ML 20 ML VIAL IV ONE (12:47)
--- NOTE | 2021-10-26 12:58 | P.PCN ---
Date of Procedure: 10/26/21 Procedure(s) Performed: BRIEF HISTORY: Patient is a 71-year-old, pleasant, is scheduled for an upper endoscopy as a part of evaluation of severe epigastric and right upper quadrant abdominal pain for the last 2 weeks' duration.. Patient presented with obstructive jaundice 2 months ago and he underwent an ERCP/EUS AT [facility] IN SEPTEMBER 2021. AND CBD STENT PLACED AND AMPULLARY BIOPSIES ARE NEGATIVE FOR MALIGNANCY.. He went to the emergency room yesterday at [facility] and had an ultrasound done that was unremarkable. CBC revealed a hemoglobin of 10 g/dL. CMP was normal. LFTs are within normal limits. Because of the persistent epigastric pain is scheduled for an upper endoscopy to evaluate further PROCEDURE PERFORMED: Esophagogastroduodenoscopy. PREOPERATIVE DIAGNOSIS: Severe epigastric pain and right upper quadrant abdominal pain of 2 weeks' duration. IV sedation per anesthesia. PROCEDURE: After informed consent was obtained, the patient was brought into the endoscopy unit. IV sedation was administered by Anesthesia under continuous monitoring. Initially the Olympus GIF-140 video endoscope was inserted into the mouth. Esophagus intubated without any difficulty. It was gradually advanced into the stomach and duodenum and carefully examined. The bulb and the second part of the duodenum appeared normal. A pigtail plastic stent was seen and the second part of the duodenum. The scope at this time was withdrawn to the stomach, adequately insufflated with air, and upon careful examination, mucosa of the antrum had patchy areas of erythema. The, body, cardia and the fundus appeared normal. The scope was then withdrawn into the esophagus. The GE junction was located at 39 cm from the incisors. The esophagus appeared normal. There were no erosions or ulcerations seen and the patient tolerated the procedure well. IMPRESSION: 1. Pigtail plastic stent seen and the second part of the duodenum. 2. Mild antral gastritis. 3. No evidence of peptic ulcer RECOMMENDATIONS: The findings of this examination were discussed with the patient as well as his family. At this time he will continue with Prilosec and pain medications as needed. He will be scheduled for a CT of abdomen and pelvis to evaluate the ongoing severe epigastric and right upper quadrant abdominal pain..
[2021-10-26 13:08] VITALS: RESP 16
[2021-10-26 13:29] VITALS: BP 124/62; PULSE 80
== END 2021-10-26 13:45 | disposition home or self-care (01) ==
LOC: ORWHC2ENDO 10:43
PROVIDERS: ATTEND Internal Medicine Gastroenterology
DX: K29.70 Gastritis, unspecified, without bleeding (principal); Z87.19 Personal history of other diseases of the digestive system; Z96.89 Presence of other specified functional implants
CPT/HCPCS: 43235; J2001; J2704

== ENCOUNTER → 2022-05-07 | Outpatient (CLI) | payer MEDICARE, OTHER ==
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
== END | disposition home or self-care (01) ==
LOC: RADCTMAIN 10:47
PROVIDERS: ATTEND Internal Medicine Gastroenterology
DX: K57.30 Diverticulosis of large intestine without perforation or abscess without bleeding (principal); J44.9 Chronic obstructive pulmonary disease, unspecified; Z90.49 Acquired absence of other specified parts of digestive tract
CPT/HCPCS: 82565; 84520; 74177; 36415; Q9967

== ENCOUNTER → 2024-09-28 | Outpatient (CLI) | payer MEDICARE, OTHER ==
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
== END | disposition home or self-care (01) ==
LOC: RADMRIMAIN 20:45
PROVIDERS: ATTEND Orthopaedic Surgery
DX: M51.16 Intervertebral disc disorders with radiculopathy, lumbar region (principal); M47.26 Other spondylosis with radiculopathy, lumbar region; M99.73 Connective tissue and disc stenosis of intervertebral foramina of lumbar region
CPT/HCPCS: 72148

== ENCOUNTER → 2024-11-10 | Outpatient (CLI) | payer MEDICARE, OTHER ==
[2024-11-10 12:47] VITALS: BP 160/87; PULSE 63; RESP 16; TEMP 97.6
--- NOTE | 2024-11-10 15:10 | P.PAINPG ---
PQRS Measure Charge Sheet Comment: HISTORY OF PRESENT ILLNESS: A 74 yr old male as a referral from Dr Flores presents today w severe and chronic LBP > 1 yr secondary to radiculopathy, spondylosis and facet arthropathy without myelopathy for evaluation. Pt states pain level is provoked at 4-6 /10 in intensity, constant, localized in the lumbar spine, predominantly axial, throbbing in character without shooting pain. Pain is provoked by walking for periods > 10 min. Pain is alleviated by PT x 6 wks which she is currently in, heat, medications, repositioning and rest . Oswestry axial pain score at 26. PMH: OA, aFib, Atrial Flutter, Angina, CVA (2012), Hyperlipidemia, HTN, Nephrolithiasis PSH: Appendectomy, Cardic Catheterization, Bile Duct Stent, L Hand Surgery, L Tennis Elbow Surgery SH: Daily tobacco use, Rare ETOH use, No illicit drug use FH: Fa- CAD. Mo- CAD. All: See list Meds: See list incl Advil, Plavix, Coumadin REVIEW OF ORGAN SYSTEMS: CONSTITUTIONAL: No fevers or chills. No recent weight loss. NEUROLOGICAL: + numbness and tingling along the distal extremities. No seizure disorders or headaches. MUSCULOSKELETAL: + pain PSYCHIATRIC: Denies current depression or suicidal thoughts. Physical Examinations : Constitutional : Cooperative , not in acute distress . Neurologic : Cranial nerve II to XII intact. No focal neurological deficits. Psychiatric : alert & oriented x 3. Matching mood & appropriate affect. Judgment & insight intact. Musculoskeletal : Cervical Spine Motor strength in the deltoid and biceps: Normal right side. Normal Left side Motor strength biceps and the wrist extensors: Normal right side . Normal left side Motor strength in the triceps muscle: Normal right side. Normal left side Deep tendon reflexes: Normal at the biceps. Normal at Brachioradialis. Normal at triceps Vertebral body tenderness to deep palpation over Cervical facet loading test: positive bilaterally Spurling test: positive bilaterally Neck distraction test: positive bilaterally Muna sign: positive bilaterally Lumbar spine Motor strength lower extremities ,thigh and legs 5/5 Right side , 5/5 Left side Deep tendon reflexes : Normal Knee Jerk. Normal Ankle Jerk Vertebral body tenderness over L4 Valderrama Test positive BL L5-L5 Lumbar facet Loading Test: positive Right / positive Left L3-L4/ L4-L5 Range of motion of the lumbar spine Flexion 30 degrees, extension 10 degrees Straight Leg Raise test: Left/ Right positive at degrees Latosha test: positive right / positive left. Severe tenderness over the Sacroiliac joint on the Right / Left sides Gaenslen test: positive bilaterally Seated flexion test: positive bilaterally. Sacral spine : Severe tenderness over the Sacroiliac joint: right side / left side Range of motion: Flexion of the lumbar spine <60 degrees Range of motion: Extension of the lumbar spine <20 degrees Gaenslen's Test positive Latosha test: positive right side / left side Thigh Thrust Test Sacral Thrust Test Imaging: MRI non contrast lumbar spine from 09/28/24 reviewed Assessment/ Plan : L4-L5 radiculopathy Recommendation of [id number] MBB L3-L4/ L4-L5 #1. Risks, benefits of procedure discussed and patient verbalized understanding. Admits to anti- coagulant use or medical history of diabetes. Protocol for discontinuation/ continuation of medications avni procedure discussed. Minimal anesthesia provided, if clinically indicated, consisting of Versed and Fentanyl. All questions answered. I have spent greater than 30 minutes on patient care today. Dr Smith was available by phone for the evaluation of this patient. The time was used to review the medical records including relevant urine studies and Prescription history (MAPs), review of the available imaging, evaluation and examination of the patient, coordination of care with the medical staff and if applicable referring physicians, as well as creation of the medical record - Pain Location Right Hip Non-Pharmacological Interventions: Heat, Physical Therapy Pharmacological Interventions: Medication PQRS Narrative: Smoking Status Current every day smoker Home Medications: Ambulatory Orders Nitroglycerin Sl Tabs [Nitrostat] 0.4 mg SUBLINGUAL Q5M PRN #30 tab 10/14/14 Metoprolol Tartrate [Lopressor] 25 mg PO HS 04/02/16 Metoprolol Tartrate [Lopressor] 50 mg PO QAM 09/15/21 Evolocumab [Repatha Syringe] 140 mg SQ Q14D 10/24/21 Pantoprazole [Protonix] 40 mg PO DAILY 10/24/21 Warfarin [Coumadin] 5 mg PO DAILY 10/24/21 Controlled Substance Measures - Controlled Substance Measures Is patient prescribed a controlled substance at discharge?: No
== END ==
LOC: PNWHC3 12:22
PROVIDERS: ATTEND Specialist
DX: M54.16 Radiculopathy, lumbar region (principal); E11.9 Type 2 diabetes mellitus without complications; F17.200 Nicotine dependence, unspecified, uncomplicated; Z88.8 Allergy status to other drugs, medicaments and biological substances
CPT/HCPCS: 99202